=== PATIENT | female | born 1995 | race African-American/Black ===

== ENCOUNTER 2023-04-18 21:25 | Emergency (ER) | payer MEDICAID, OTHER ==
[~2023-04-18] VITALS: Ht 160 cm; Wt 81.0 kg
[2023-04-18 21:29] VITALS: BP 125/74
--- NOTE | 2023-04-18 21:44 | ED General ---
General Chief Complaint: General Problems/Pain Stated Complaint: COLD Nursing Triage Note: PATIENT STATES HOMELESS, STATES FEET AND LEGS NUMB DUE TO BEING COLD. Source of Information: Patient Exam Limitations: No Limitations History of Present Illness Date Seen by Provider: Apr 18, 2023 Time Seen by Provider: 21:43 Initial Comments Patient is a 27yo female who presents to the ER by EMS with a chief complaint of being very cold and her legs and feet being numb. She was reportedly outside in the weather (cold and rainy - 45deg). She recently moved to [place], within the last week to 10 days. SHe had arranged for a room to rent (found on [employer]) but that fell through after 3 days. She was at [facility] this morning filling out HUD paperwork. Has no place to stay tonight. She states she is supposed to be on medications for Mental Health - but states it has been years. Denies recent illness. No other complaints. She was provided dry socks and blankets prior to my evaluation and states she is feeling better. Timing/Duration: 1 Hour Severity: Severe Associated Systoms: Denies Symptoms Allergies and Home Medications Patient Home Medication List Home Medication List Reviewed: Yes Review of Systems Review of Systems Constitutional: see HPI EENTM: no symptoms reported Respiratory: no symptoms reported Cardiovascular: no symptoms reported Gastrointestinal: no symptoms reported Genitourinary: no symptoms reported Musculoskeletal: no symptoms reported Skin: other ("cold") Psychiatric/Neurological: Numbness, Tingling Past Sceopwe-Esdijh-Aanaig Hx Patient Social History Tobacco Use?: Yes Tobacco type used: Cigarettes Use of E-Cig and/or Vaping dev: No Substance use?: No Alcohol Use?: No Immunizations Up To Date Influenza Vaccine Up-to-Date: No; Not Current Past Medical History Surgery/Hospitalization HX: SEASONAL ALLERGIES, ANEMIC Physical Exam Vital Signs Vital Signs - First Documented 04/18/23 21:29 Temp 36.4 Pulse 94 Resp 20 B/P (MAP) 125/74 (91) Pulse Ox 97 Capillary Refill : Less Than 3 Seconds Height, Weight, BMI Height: '" Weight: lbs. oz. kg; 31.00 BMI Method: General Appearance: No Apparent Distress, WD/WN Eyes: Bilateral Eye Normal Inspection, Bilateral Eye PERRL, Bilateral Eye EOMI HEENT: PERRL/EOMI, Moist Mucous Membranes Neck: Normal Inspection Respiratory: Lungs Clear, Normal Breath Sounds, No Accessory Muscle Use, No Respiratory Distress Cardiovascular: Regular Rate, Rhythm, Normal Peripheral Pulses Gastrointestinal: Normal Bowel Sounds, Non Tender, Soft Extremity: Normal Capillary Refill, Normal Range of Motion, Non Tender, No Pedal Edema Neurologic/Psychiatric: Alert, Oriented x3, No Motor/Sensory Deficits, Normal Mood/Affect Skin: Normal Color, Warm/Dry Progress/Results/Core Measures Suspected Sepsis SIRS Temperature: Pulse: 94 Respiratory Rate: 20 Blood Pressure 125 /74 Mean: 91 Results/Orders My Orders Vital Signs/I&O 04/18/23 21:29 Temp 36.4 Pulse 94 Resp 20 B/P (MAP) 125/74 (91) Pulse Ox 97 Capillary Refill : Less Than 3 Seconds Blood Pressure Mean: 91 Progress Note : Time: 22:26 Progress Note Patient seen and evaluated by me. Evaluation today includes physical exam. Pertinent physical exam findings include well-developed well-nourished female in no acute distress. Vital signs are stable. She is not hypothermic or hyperthermic. Heart is regular, lungs are clear abdomen is benign. She has no evidence of focal neurologic deficit. Mentating normally. She does have a li ttle bit of pressured speech, endorses a history of mental health issues that have been untreated for "years". Significant social impacts and that she is currently homeless and has limited resources. Patient is observed in the emergency department, maintained stable vital signs with no deterioration in her condition. She is offered a meal tray. I discussed with her local resources including [facility]. She has no clinical or objective findings that would indicate the need for imaging, blood work. She has no current complaints of illness. No indications for admission. Patient is discharged in stable and improved condition. Departure Impression Primary Impression: Exposure to environmental cold Qualified Codes: T69.9XXA - Effect of reduced temperature, unspecified, initial encounter Additional Impression: Homelessness Disposition: 01 HOME, SELF-CARE Condition: Improved Departure-Patient Inst. Decision time for Depature: 22:26 Referrals: [facility] Add. Discharge Instructions: [facility] has mental health resources and social workers. Contact them for more options regarding your current situation. Return to the Emergency Department for any new, concerning or emergent complaints. PILLO PEREZ MD Apr 18, 2023 21:43
== END 2023-04-18 22:49 | disposition home or self-care (01) ==
LOC: EDSEX 21:28 → ER 21:28
DX: T69.9XXA Effect of reduced temperature, unspecified, initial encounter (principal); F17.210 Nicotine dependence, cigarettes, uncomplicated; Z59.00 Homelessness unspecified
CPT/HCPCS: 99283